=== PATIENT | male | born 1955 ===

== ENCOUNTER 2022-06-20 15:23 | Outpatient (REF) | payer BC, SELFPAY ==
[2022-06-20 16:36] LABS: Hematocrit 37.5 % (42.0-52.0); Hemoglobin 12.8 g/dl (14.0-18.0); Mean Corpuscular HGB Conc 34.1 g/dl (31.0-36.0); Mean Corpuscular Hemoglobin 35.3 pg (27.0-33.0); Mean Corpuscular Volume 103.3 fL (80.0-98.0); Mean Platelet Volume 10.4 fL (9.4-12.4); Platelet Count 168 X10*3/uL (160-400); Red Blood Count 3.63 X10*6/uL (4.60-5.80); Red Cell Distribution Width 12.6 % (11.0-16.0); White Blood Count 6.4 X10*3/uL (4.8-10.8)
[2022-06-20 17:40] LABS: Alanine Aminotransferase 54 U/L (0-40); Albumin Level 2.8 g/dL (3.5-5.0); Alkaline Phosphatase 313 U/L (39-117); Anion Gap 16 (12-20); Aspartate Amino Transferase 155 U/L (5-37); Bilirubin Direct 1.9 mg/dL (0.0-0.5); Bilirubin Total 2.9 mg/dL (0.0-1.0); Blood Urea Nitrogen 7 mg/dL (9-16); Calcium 8.3 mg/dL (8.4-10.2); Carbon Dioxide 20 mmol/L (22-29); Chloride 96 mmol/L (96-108); Cholesterol 125 mg/dL; Estimated Glomerular Filt Rate > 60; Glucose Random 88 mg/dL (60-115); HDL Cholesterol 33 mg/dL; LDL Cholesterol Calculated 78 mg/dl; Potassium 3.9 mmol/L (3.3-5.1); Sodium 128 mmol/L (135-145); Total Protein 7.9 g/dL (6.5-8.0); Triglycerides 74 mg/dL
[2022-06-20 18:01] LABS: Thyroid Stimulating Hormone 1.67 uIU/mL (0.32-4.0)
== END 2022-06-20 15:24 | disposition home or self-care (01) ==
LOC: HO.HMGCLDS 15:23
PROVIDERS: Visit Provider Internal Medicine
DX: D69.6 Thrombocytopenia, unspecified (principal)
CPT/HCPCS: 36415; 80048; 80061; 80076; 84443; 85027